=== PATIENT | female | born 1945 | race Caucasian/White ===

== ENCOUNTER 2022-09-23 13:07 | Emergency (ER) | payer MEDICARE, OTHER, SELFPAY ==
[2022-09-23 13:22] VITALS: BP 125/74; PULSE 79; RESP 16; TEMP 36.3; O2SAT 98
--- NOTE | 2022-09-23 14:08 | ED.EYEPROB ---
HPI - Eye Problem General Chief complaint: Eye Problems Stated complaint: left eye pain Time Seen by Provider: 09/23/22 14:02 Source: patient and RN notes reviewed Mode of arrival: ambulatory Limitations: no limitations History of Present Illness HPI Narrative: 77-year-old female presents concern for left eye pain that started today after she had something blow into her eye outside. She reports pain, watery discharge. She denies any vision changes or purulent discharge MD chief complaint: eye pain Related Data Home Medications Medication Instructions Recorded Confirmed amlodipine 10 mg tablet mg 09/23/22 atorvastatin 80 mg tablet mg 09/23/22 indapamide 2.5 mg tablet mg 09/23/22 losartan 100 mg tablet mg 09/23/22 metformin 500 mg tablet mg 09/23/22 metoprolol tartrate 50 mg tablet mg 09/23/22 naproxen 500 mg tablet mg 09/23/22 omeprazole 20 mg capsule,delayed mg 09/23/22 release timolol maleate 0.5 % eye gel 09/23/22 forming solution travoprost 0.004 % eye drops drp 09/23/22 Allergies Allergy/AdvReac Type Severity Reaction Status Date / Time No Known Allergies Allergy Mild Verified 09/23/22 13:32 Review of Systems Review of Systems: CONSTITUTIONAL: Denies malaise, chills, sweats, or fever. EYES: Denies visual changes. Reports left eye redness, watery discharge. ENT: Denies rhinorrhea, congestion, sinus pain, otalgia or sore throat. SKIN: Denies rash or itching. NEUROLOGIC: Denies numbness, weakness, or headache. PSYCHIATRIC: Denies anxiety or depression. All systems reviewed & are unremarkable except as noted in HPI and below PMFSH Comments At time of signature, agree with nursing past medical, surgical, social and family history. There is no relevant family history pertinent to the presenting complaint Exam Narrative: GENERAL: Well-appearing, well-nourished, and in no acute distress. HEAD: Normocephalic, atraumatic. EYES: PERRLA, sclera clear, and EOMI. No nystagmus. Left sclera injected with corneal abrasion noted upon with lamp exam, see note. Upper and lower eyelid unremarkable, no periorbital edema noted ENT: Nares clear, turbinates pink, no rhinorrhea or epistaxis. Mucous membranes moist. NECK: Supple. CHEST: No respiratory distress. Speaks in full sentences. HEART: Regular rate and rhythm. SKIN: Warm, dry, no visible rash. NEURO: Alert and oriented x3. PSYCH: Normal mood and affect Course Course Emergency Course: Patient is aware of diagnosis, understands and agrees to treatment plan. Anticipatory guidance given. Patient agrees to follow-up as directed and is aware of reasons to seek care at the emergency department. Portions of this record may have been created with voice recognition software Level of Care: Express Care Visit Vital Signs Vital signs: Vital Signs Temperature 97.4 F L 09/23/22 13:22 Pulse Rate 79 09/23/22 13:22 Respiratory Rate 16 09/23/22 13:22 Blood Pressure 125/74 09/23/22 13:22 Pulse Oximetry 98 09/23/22 13:22 Oxygen Delivery Room Air 09/23/22 13:22 Temperature 97.4 F L 09/23/22 13:22 Pulse Rate 79 09/23/22 13:22 Respiratory Rate 16 09/23/22 13:22 Blood Pressure 125/74 09/23/22 13:22 Pulse Oximetry 98 09/23/22 13:22 Oxygen Delivery Room Air 09/23/22 13:22 Reviewed. Procedures Other Procedure Procedure 1: Other Procedure: Tetracaine 1 gtt instilled in left eye, fluorescein stain applied. Corneal abrasion noted upon casarez lamp exam directly above the pupil. Eye washed with NS 100 ml. No foreign bodies or Soraida sign noted. MDM - Eye Problem MDM Narrative Medical decision making narrative: Consideration of the following conditions may be warranted for the presenting problem, they are not final diagnoses: Bacterial conjunctivitis, allergic conjunctivitis, viral conjunctivitis, foreign body, blepharitis, chalazion, hordeolum, corneal abrasion, preseptal cellulitis, orbital cellulitis. No evidence
== END 2022-09-23 14:24 | disposition home or self-care (01) ==
PROVIDERS: Emergency Provider Nurse Practitioner
DX: S05.02XA Injury of conjunctiva and corneal abrasion without foreign body, left eye, initial encounter (principal); X58.XXXA Exposure to other specified factors, initial encounter; E78.00 Pure hypercholesterolemia, unspecified; I10 Essential (primary) hypertension; K21.9 Gastro-esophageal reflux disease without esophagitis; E11.39 Type 2 diabetes mellitus with other diabetic ophthalmic complication; H42 Glaucoma in diseases classified elsewhere; Z96.651 Presence of right artificial knee joint
CPT/HCPCS: 99213; A9270; G0463